=== PATIENT | female | born 1975 | race Caucasian/White ===

== ENCOUNTER → 2021-11-22 15:02 | Outpatient (BNVA) | payer MEDICAID, SELFPAY | PROVIDERS: PCP Internal Medicine; Visit Provider Nurse Practitioner Family | DX: M47.816 Spondylosis without myelopathy or radiculopathy, lumbar region (principal); M54.16 Radiculopathy, lumbar region; R29.898 Other symptoms and signs involving the musculoskeletal system; G62.9 Polyneuropathy, unspecified | CPT/HCPCS: 99202 ==

== ENCOUNTER 2023-06-14 13:17 | Outpatient (REF) | payer MEDICAID, SELFPAY ==
[2023-06-14 16:08] LABS: Estimated Average Glucose 120 mg/dL; Hemoglobin A1c % 5.8 % (<6.0)
[2023-06-14 16:26] LABS: Cholesterol 247 mg/dL (<200); HDL Cholesterol 81 mg/dL (>40); LDL Cholesterol Calculated 147 mg/dL (<100); Triglycerides 95 mg/dL (<150)
[2023-06-14 16:38] LABS: Anion Gap 12 (12-20); Blood Urea Nitrogen 14 mg/dL (9-16); Calcium 9.3 mg/dL (8.4-10.2); Carbon Dioxide 25 mmol/L (22-29); Chloride 105 mmol/L (96-108); Estimated Glomerular Filt Rate > 60; Glucose Random 81 mg/dL (60-115); Sodium 138 mmol/L (135-145)
[2023-06-14 16:41] LABS: TSH reflex Free T4 1.85 uIU/mL (0.32-4.0); Vitamin D 25-OH Total 37.3 ng/mL (>30)
[2023-06-14 17:01] LABS: Reflex LDLD? No
== END 2023-06-14 13:18 | disposition home or self-care (01) ==
LOC: HO.HHCL 13:17
PROVIDERS: Visit Provider Internal Medicine
DX: E11.9 Type 2 diabetes mellitus without complications (principal); N12 Tubulo-interstitial nephritis, not specified as acute or chronic; E55.9 Vitamin D deficiency, unspecified
CPT/HCPCS: 36415; 80048; 80061; 82306; 83036; 84443

== ENCOUNTER 2025-05-06 16:07 | Outpatient (REF) | payer MEDICAID, SELFPAY ==
--- OUTSIDE RECORDS SUMMARY | 2025-05-04 19:00 | XMS_ITS | Encounter Summary ---
Author Organization [employer] Address [address] [facility] 7t [place] [address] Care Team Providers Care Textile Colorist Formulator Name Role Phone Blanca Candelaria MD Primary Care Provider + Reason for Visit * Reason Comments Walk-In Double ear infection Encounter Details Date Type Department Care Team ([facility] st Contact Info) Description 05/04/2025 7:00 PM EDT Office Visit [facility] [address] [place] [address] Rip Hammond MD [address] [place] [address] Non-recurrent acute suppurative otitis media of both ears without spontaneous rupture of tympanic membranes (Primary Dx) Social History Tobacco Use Types Packs/Day Years Used Date Smoking Tobacco: Never Passive Smoke Exposure: Never Smokeless Tobacco: Never Alcohol Use Standard Drinks/Week Comments Never 0 (1 standard drink = 0.6 oz pur e alcohol) Housing Stability Answer Date Recorded What is your housing situation today? I have aliyah khushbu 10/22/[address] you li ve. Do you have problems with any of the following? None of the above 10/22/2024 Food Insecurity Answer Date Recorded Within the past 12 months, y ou worried that your food would run out before you got money to buy more: Never True 10/22/2024 Within the past 12 months,th e food you bought just didn't last and you didn't have enough money to get more: Never True 03/2025 Transportation Answer Date Recorded In the past 12 months, has l ack of transportation kept you from medical appts, meetings, work or from getting things needed for daily living? No 10/22/2024 Utilities Answer Date Recorded In the past 12 months, has t he electric, gas, oil or water company threatened to shut off services in your home? No 10/22/2024 Depression Answer Date Recorded Patient Health Questionnaire-2 Score 0 10/27/2022 Internet Access Answer Date Recorded Internet Access Q1 No 10/22/2024 Internet Access Q2 I do not want or need it 03/2025 Comments Unknown Sex and Gender Information Value Date Recorded Sex Assigned at Female 05/15/2022 10:25 AM EDT Legal Sex Female 10:25 AM EDT Gender Identity Female 05/15/2022 10:25 AM EDT Sexual Orientation Straight 05/15/2022 10 :25 AM EDT documented as of this encounter Last Filed Vital Signs Vital Sign Reading Time Taken Comments Blood Pressure 148/86 05/04/2025 7:03 PM EDT Pulse 92 05/04/2025 7:03 PM EDT Temperature 36.3 C (97.3 F) 05/04/2025 7:03 PM EDT Respiratory Rate 18 05/04/2025 7:03 PM EDT Oxygen Saturation 95% 05/04/2025 7:03 PM EDT Inhaled Oxygen Concentration - - Weight 99.3 kg (219 lb) 05/04/2025 7:03 PM EDT Height - - Body Mass Index 40.06 10/22/2024 3:21 PM EDT documented in this encounter Progress Notes * Rip Celeste MD - 05/04/2025 7:00 PM EDT Subjective Patient ID: Ankita Martinez is a 49 y.o. female who presents for Walk-In (Double ear infection). Earache There is pain in both ears. This is a new problem. The maximum temperature recorded prior to her arrival was 101 - 101.9 F. The pain is moderate. Pertinent negatives include no coughing, hearing loss, sore throat or vomiting. Review of Systems HENT: Positive for ear pain. Negative for hearing loss and sore throat. Respiratory: Negative for cough. Gastrointestinal: Negative for vomiting. Objective Physical Exam Constitutional: Appearance: Normal appearance. HENT: Right Ear: Drainage and tenderness present. Tympanic membrane is injected. Left Ear: Drainage and tenderness present. Tympanic membrane is injected. Neurological: Mental Status: She is alert. Assessment/Plan Problem List Items Addressed This Visit None Visit Diagnoses Non-recurrent acute suppurative otitis media of both ears without spontaneous rupture of tympanic membranes - Primary Will start on clarithromycin, no hearing loss, call back if not improving Relevant Orders Basic Metabolic Panel documented in this encounter Plan of Treatment Upcoming Encounters Date Type Department Care Team (Late st Contact Info) Description 05/07/2025 12:15 PM EDT Office Visit [facility] [address] [place] [address] Blanca Candelaria MD [address] [place] [address] 05/12/2025 11:00 AM EDT Office Visit [facility] [address] [place] [address] Scheduled Orders Name Type Priority Associated Diagnoses Orde r Schedule Basic Metabolic Panel Lab Routine Non-recurrent acute suppurative otitis media of both ears without spontaneous rupture of tympanic membranes Expected: 05/04/2025 (Approximate), Expires: 05/04/2026 documented as of this encounter Visit Diagnoses Diagnosis Non-recurrent acute suppurative otitis media of both ears without spontaneous rupture of tympanic membranes- Primary documented in this encounter Care Teams Textile Colorist Formulator Relationship Specialty Start Date End Date Blanca Candelaria MD [address] [place] [address] PCP - General Family Medicine 08/01/19 documented as of this encounter
[2025-05-06 18:34] LABS: MANUAL DIFF FLAG NO
[2025-05-06 18:46] LABS: Hematocrit 41.4 % (37.0-47.0); Hemoglobin 13.0 g/dl (12.0-16.0); Imm Gran Abs Auto 0.01 X10*3/uL (0.00-0.03); Imm Gran Pct Auto 0.2 % (0.0-0.4); Lymphocytes Absolute Auto 1.9 X10*3/uL (1.2-4.9); Mean Corpuscular HGB Conc 31.4 g/dl (31.0-35.0); Mean Corpuscular Hemoglobin 26.7 pg (27.0-33.0); Mean Corpuscular Volume 85.0 fL (80.0-98.0); NRBC Abs Auto 0.000 X10*3/uL (0.0-0.012); NRBC Pct Auto 0.0 /100WBC (0.0-0.2); Platelet Count 230 X10*3/uL (160-400); Red Blood Count 4.87 X10*6/uL (4.20-5.50); White Blood Count 5.3 X10*3/uL (4.8-10.8)
[2025-05-06 19:24] LABS: Alanine Aminotransferase 16 U/L (0-31); Albumin Level 4.4 g/dL (3.5-5.0); Alkaline Phosphatase 65 U/L (39-117); Anion Gap 17 (12-20); Aspartate Amino Transferase 18 U/L (5-31); Blood Urea Nitrogen 8 mg/dL (9-16); Calcium 9.0 mg/dL (8.4-10.2); Carbon Dioxide 23 mmol/L (22-29); Chloride 105 mmol/L (96-108); Estimated Glomerular Filt Rate > 60; Potassium 4.4 mmol/L (3.3-5.1); Sodium 141 mmol/L (135-145); Total Protein 7.3 g/dL (6.5-8.0)
[2025-05-06 19:54] LABS: Folate 8.6 ng/mL (> or = 4.0); Vitamin B12 331 pg/mL (200-900)
--- OUTSIDE RECORDS SUMMARY | 2025-05-06 21:58 | XMS_ITS | Encounter Summary ---
Author Organization [email or web address] Address [address] [facility] 7t [place] [address] Care Team Providers Care Staff Mine Warfare Officer Name Role Phone Blanca Candelaria MD Primary Care Provider + Reason for Visit * Reason Comments Med Refill Encounter Details Date Type Department Care Team ([facility] st Contact Info) Description 05/04/2025 Refill [facility] [address] [place], [place] [phone] Blanca Candelaria MD [address] [place], [place] [phone] Oropharyngeal dysphagia Social History Tobacco Use Types Packs/Day Years Used Date Smoking Tobacco: Never Passive Smoke Exposure: Never Smokeless Tobacco: Never Alcohol Use Standard Drinks/Week Comments Never 0 (1 standard drink = 0.6 oz pur e alcohol) Housing Stability Answer Date Recorded What is your housing situation today? I have aliyah ríos 10/22/[address] you li [...] AM EDT documented as of this encounter Plan of Treatment Upcoming Encounters Date Type Department Care Team (Late st Contact Info) Description 05/07/2025 12:15 PM EDT Office Visit [facility] [address] [place] [address] Blanca Candelaria MD [address] [place] [address] 05/12/2025 11:00 AM EDT Office Visit [facility] [address] [place] [address] documented as of this encounter Visit Diagnoses Diagnosis Oropharyngeal dysphagia Dysphagia, oropharyngeal phase documented in this encounter Care Teams Staff Mine Warfare Officer Relationship Specialty Start Date End Date Blanca Candelaria MD [address] [place] [phone] PCP - General Family Medicine 08/01/19 documented as of this encounter
--- OUTSIDE RECORDS SUMMARY | 2025-05-06 21:58 | XMS_ITS | Encounter Summary ---
Author Organization [employer] Address [address] [facility] 7t [place] [address] Care Team Providers Care Color Paste Mixing Supervisor Name Role Phone Blanca Candelaria MD Primary Care Provider + Reason for Visit * Reason Comments Med Refill Encounter Details Date Type Department Care Team ([facility] Contact Info) Description 11/11/2022 Refill [facility] [address] [place] [address] Blanca Candelaria MD [address] [place] [address] [phone] Chronic bilateral low back pain with bilateral sciatica Social History Tobacco Use Types Packs/Day Years Used Date Smoking Tobacco: Never Smokeless Tobacco: Never Alcohol Use Standard Drinks/Week Comments Never 0 (1 standard drink = 0.6 oz pur e alcohol) Depression Answer Date Recorded Patient Health Questionnaire-2 Score 0 10/27/2022 Comments Unknown Sex and Gender Information Value Date Recorded Sex Assigned at Female 05/15/2022 10:25 AM EDT Legal Sex Female 10:25 AM EDT Gender Identity Female 05/15/2022 10:25 AM EDT Sexual Orientation Straight 05/15/2022 10 :25 AM EDT documented as of this encounter Plan of Treatment Upcoming Encounters Date Type Department Care Team ([facility] Contact Info) Description 05/07/2025 12:15 PM EDT Office Visit [facility] [address] [place], [place] [phone] Blanca Candelaria MD [address] [place] [address] 05/12/2025 11:00 AM EDT Office Visit [facility] [address] [place] [address] documented as of this encounter Visit Diagnoses Diagnosis Chronic bilateral low back pain with bilateral sciatica documented in this encounter Care Teams Color Paste Mixing Supervisor Relationship Specialty Start Date End Date Blanca Candelaria MD [address] [place] [address] PCP - General Family Medicine 08/01/19 documented as of this encounter
--- OUTSIDE RECORDS SUMMARY | 2025-05-06 21:58 | XMS_ITS | Encounter Summary ---
Author Organization [employer] Address [address] [facility] 7t [place] [address] Care Team Providers Care Unemployment Insurance Hearing Officer Name Role Phone Blanca Candelaria MD Primary Care Provider + Reason for Visit * Reason Comments Med Refill Encounter Details Date Type Department Care Team (Late st Contact Info) Description 02/01/2025 Refill [facility] [address] [place] [address] Kate Márquez NP [address] [place] [address] Persistent dyspnea after COVID-19; Other migraine without status migrainosus, intractable Social History Tobacco Use Types Packs/Day Years [...] Description 05/07/2025 12:15 PM EDT Office Visit [facility] [address] [place] [address] Blanca Candelaria MD [address] [place] [address] 05/12/2025 11:00 AM EDT Office Visit [facility] [address] [place] [address] documented as of this encounter Visit Diagnoses Diagnosis Persistent dyspnea after COVID-19 Other migraine without status migrainosus, intractable documented in this encounter Care Teams Unemployment Insurance Hearing Officer Relationship Specialty Start Date End Date Blanca Candelaria MD [address] [place] [address] PCP - General Family Medicine 08/01/19 documented as of this encounter
--- OUTSIDE RECORDS SUMMARY | 2025-05-06 21:58 | XMS_ITS | Encounter Summary ---
Author Organization [employer] Address [address] [facility] 7t [place] [address] Care Team Providers Care Tool Pusher Name Role Phone Blanca Candelaria MD Primary Care Provider + Encounter Details Date Type Department Care Team (Late Contact Info) Description 04/17/2023 Telephone [facility] [address] [place] [address] [phone] Blanca Candelaria MD [address] [place] [address] [phone] Social History Tobacco Use Types Packs/Day Years [...] Encounters Date Type Department Care Team (Late Contact Info) Description 05/07/2025 12:15 PM EDT Office Visit [facility] [address] [place] [address] [phone] Blanca Candelaria MD [address] [place] [address] [phone] 05/12/2025 11:00 AM EDT Office Visit [facility] [address] [place] [address] documented as of this encounter Visit Diagnoses Not on filedocumented in this encounter Care Teams Tool Pusher Relationship Specialty Start Date End Date Blanca Candelaria MD [address] [place] [phone] PCP - General Family Medicine 08/01/19 documented as of this encounter
--- OUTSIDE RECORDS SUMMARY | 2025-05-06 21:58 | XMS_ITS | Encounter Summary ---
Author Organization [employer] Address [address] [facility] 7t [place] [address] Care Team Providers Care Abrasive Sawyer Name Role Phone Blanca Candelaria MD Primary Care Provider + Reason for Visit * Reason Comments Med Refill Encounter Details Date Type Department Care Team (Late st Contact Info) Description 11/01/2023 Refill [facility] [address] [place], [place] [phone] Blanca Candelaria MD [address] [place], [place] [phone] Pure hypercholesterolemia Social History Tobacco Use Types Packs/Day Years Used Date Smoking Tobacco: Never Passive Smoke Exposure: Never Smokeless Tobacco: Never Alcohol Use Standard Drinks/Week Comments Never 0 (1 standard drink = 0.6 oz pur e alcohol) Housing Stability Answer Date Recorded What is your housing situation today? I have aliyah ríos 04/30/[address] you li ve. Do you have problems with any of the following? None of the above 04/30/2023 Food Insecurity Answer Date Recorded Within the past 12 months, y ou worried that your food would run out before you got money to buy more: Never True 04/30/2023 Within the past 12 months,th e food you bought just didn't last and you didn't have enough money to get more: Never True Transportation Answer Date Recorded In the past 12 months, has l ack of transportation kept you from medical appts, meetings, work or from getting things needed for daily living? No 04/30/2023 Utilities Answer Date Recorded In the past 12 months, has t he electric, gas, oil or water company threatened to shut off services in your home? No 04/30/2023 Depression Answer Date Recorded Patient Health Questionnaire-2 [...] Description 05/07/2025 12:15 PM EDT Office Visit [facility] [address] [place] [address] Blanca Candelaria MD [address] [place] [address] 05/12/2025 11:00 AM EDT Office Visit [facility] [address] [place] [address] documented as of this encounter Visit Diagnoses Diagnosis Pure hypercholesterolemia documented in this encounter Care Teams Abrasive Sawyer Relationship Specialty Start Date End Date Blanca Candelaria MD [address] [place] [phone] PCP - General Family Medicine 08/01/19 documented as of this encounter
--- OUTSIDE RECORDS SUMMARY | 2025-05-06 21:58 | XMS_ITS | Encounter Summary ---
Author Organization [employer] Address [address] [facility] 7t [place] [address] Care Team Providers Care Social Media Editor Name Role Phone Blanca Candelaria MD Primary Care Provider + Reason for Visit * Reason Comments Med Refill Encounter Details Date Type Department Care Team ([facility] st Contact Info) Description 12/17/2024 Refill [facility] [address] [place] [address] Rip Hammond MD [address] [place] [address] Social History Tobacco Use Types Packs/Day Years [...] Description 05/07/2025 12:15 PM EDT Office Visit [facility] [address] [place] [address] Blanca Candelaria MD [address] [place] [address] 05/12/2025 11:00 AM EDT Office Visit [facility] [address] [place] [address] documented as of this encounter Visit Diagnoses Not on filedocumented in this encounter Care Teams Social Media Editor Relationship Specialty Start Date End Date Blanca Candelaria MD [address] [place] [phone] PCP - General Family Medicine 08/01/19 documented as of this encounter
--- OUTSIDE RECORDS SUMMARY | 2025-05-06 21:58 | XMS_ITS | Encounter Summary ---
Author Organization [employer] Address [address] [facility] 7t [place] [address] Care Team Providers Care Flat Optical Element Maker Name Role Phone Blanca Candelaria MD Primary Care Provider + Reason for Visit * Reason Comments Med Refill Encounter Details Date Type Department Care Team (Late Contact Info) Description 10/23/2022 Refill [facility] [address] [place] [address] Blanca Candelaria MD [address] [place] [address] [phone] Fibromyalgia; Recurrent major depressive disorder, in partial remission (CMS/HCC) Social History Tobacco Use Types Packs/Day Years Used Date Smoking Tobacco: Never Assessed Depression Answer Date Recorded Patient Health Questionnaire-2 [...] Description 05/07/2025 12:15 PM EDT Office Visit [facility] [address] [place], [place] [phone] Blanca Candelaria MD [address] [place], [place] [phone] 05/12/2025 11:00 AM EDT Office Visit [facility] [address] [place] [address] documented as of this encounter Visit Diagnoses Diagnosis Fibromyalgia Unspecified myalgia and myositis Recurrent major depressive disorder, in partial remission (CMS/HCC) documented in this encounter Care Teams Flat Optical Element Maker Relationship Specialty Start Date End Date Blanca Candelaria MD [address] [place] [phone] PCP - General Family Medicine 08/01/19 documented as of this encounter
--- OUTSIDE RECORDS SUMMARY | 2025-05-06 21:58 | XMS_ITS | Encounter Summary ---
Author Organization [employer] Address [address] [facility] 7t [place] [address] Care Team Providers Care Recorder Gravity Prospecting Name Role Phone Blanca Candelaria MD Primary Care Provider + Reason for Visit * Reason Comments Med Refill Encounter Details Date Type Department Care Team (Late Contact Info) Description 08/25/2022 Refill [facility] [address] [place] [address] Blanca Candelaria MD [address] [place], [place] [phone] Social History Tobacco Use Types Packs/Day Years Used Date Smoking Tobacco: Never Assessed Comments Unknown Sex and Gender Information Value Date Recorded Sex Assigned at Female 05/15/2022 10:25 AM EDT Legal Sex Female 10:25 AM EDT Gender Identity Female 05/15/2022 10:25 AM EDT Sexual Orientation Straight 05/15/2022 10 :25 AM EDT documented as of this encounter Plan of Treatment Upcoming Encounters Date Type Department Care Team (Late Contact Info) Description 05/07/2025 12:15 PM EDT Office Visit [facility] [address] [place], [place] [phone] Blanca Candelaria MD [address] [place] [address] 05/12/2025 11:00 AM EDT Office Visit [facility] [address] [place] [address] documented as of this encounter Visit Diagnoses Not on filedocumented in this encounter Care Teams Recorder Gravity Prospecting Relationship Specialty Start Date End Date Blanca Candelaria MD [address] [place] [phone] PCP - General Family Medicine 08/01/19 documented as of this encounter
--- OUTSIDE RECORDS SUMMARY | 2025-05-06 21:58 | XMS_ITS | Clinical Summary ---
Author Organization [facility] Address [address] [place] [phone] Phone Care Team Providers Care Inventory Control Specialist Name Role Phone Ariel Forde MD Primary Care Provider Allergies Active Allergy Reactions Criticality Noted Date Comments Iron 09/15/2024 Morphine 09/15/2024 Tramadol 09/15/2024 Medical History Medical History Date Comments Nerve damage CVA (cerebral vascular accident) ([facility] V24, [facility] V28) Diabetes mellitus ([facility] V24, [facility] V28) Asthma Hyperlipidemia Migraines Social History Tobacco Use Types Packs/Day Years Used Date Smoking Tobacco: Never Smokeless Tobacco: Never Tobacco Cessation:Counseling Given: Not Answered Alcohol Use Standard Drinks/Week Comments Never 0 (1 standard drink = 0.6 oz pur e alcohol) Comments No Sex and Gender Information Value Date Recorded Sex Assigned at Female 09/15/2024 11:44 PM EST Legal Sex Female 4:54 AM EST Gender Identity Female 09/15/2024 11:44 PM EST Sexual Orientation Choose not to disclose 2024 11:44 PM EST Obstetrics History Last Filed Vital Signs Vital Sign Reading Time Taken Comments Blood Pressure 136/83 09/15/2024 10:49 PM EST Pulse 83 09/15/2024 10:49 PM EST Temperature 36.6 C (97.9 F) 09/15/2024 10:49 PM EST Respiratory Rate 16 09/15/2024 8:41 PM EST Oxygen Saturation 99% 09/15/2024 10:49 PM EST Inhaled Oxygen Concentration - - Weight 102 kg (224 lb) 09/15/2024 8:41 PM EST Height 157.5 cm (5' 2 ) 09/15/2024 8:41 PM EST Body Mass Index 40.97 09/15/2024 8:41 PM EST Plan of Treatment Health Maintenance Due Date Last Done Comments Breast Cancer Screening 1974 Colorectal Cancer Screening: Colonoscopy 1974 Diabetes: Annual GFR (Glomerular Filtration Rate) 1974 Diabetes: Annual Foot Exam 1984 Diabetes: Annual Retina Eye Exam 1984 Hepatitis B Vaccines (1 of 3 - 19+ 3-dose series) 1993 Cervical Cancer Screening: P ap Smear 11/14/1995 Cholesterol Screening (Lipid Panel) 06/18/2022 HIV Screening 06/18/2022 Hepatitis C Screening 06/18/2022 Social Influencers of Health Screening 06/18/2022 Depression Screening 07/16/2024 Diabetes: Annual Urine Albumin-Creatinine Ratio (uACR) 09/16/2024 Diabetes: Blood Sugar Contro l Test (HGBA1C) 09/16/2024 06/14/2023 Hypertension/CHF/CAD Annual BMP Blood Test 09/16/2024 RSV Immunization Adult Patients (1 - Risk 50-74 years 1-dose series) 2024 Zoster Vaccines (1 of 2) 2024 COVID-19 Vaccine (4 - 2024-2 6 season) 2025 07/20/2023, 01/18/2021, 12/22/2020 Influenza Vaccine (#1) 2025 DTaP,Tdap,and Td Vaccines (3 - Td or Tdap) 07/20/2033 07/20/2023, 04/03/2006 Pneumococcal Vaccine: 50+ Years Completed 07/20/2023 HIB Vaccines Aged Out No longer eligi ble based on patient's age to complete this topic HPV Vaccines Aged Out No longer eligi ble based on patient's age to complete this topic Hepatitis A Vaccines Aged Out No long er eligible based on patient's age to complete this topic IPV Vaccines Aged Out No longer eligi ble based on patient's age to complete this topic MMR Vaccines Aged Out No longer eligi ble based on patient's age to complete this topic Meningococcal ACWY Vaccine Aged Out N o longer eligible based on patient's age to complete this topic Meningococcal B Vaccine Aged Out No l onger eligible based on patient's age to complete this topic RSV Immunization Patients Under 20 months Aged Out No longer eligible b ased on patient's age to complete this topic Varicella Vaccines Aged Out No longer eligible based on patient's age to complete this topic Insurance MEDICAID - [place] Care Teams Inventory Control Specialist Relationship Specialty Start Date End Date Ariel Forde MD [address] [place], [place] PCP - General Pulmonology 08/28/17
--- OUTSIDE RECORDS SUMMARY | 2025-05-06 21:58 | XMS_ITS | Encounter Summary ---
Author Organization [employer] Address [address] [facility] 7t [place] [address] Care Team Providers Care Feed Miller Name Role Phone Blanca Candelaria MD Primary Care Provider + Encounter Details Date Type Department Care Team (Late st Contact Info) Description 02/19/2024 Orders Only [facility] [address] [place] [address] BetancurRip Brady MD [address] [place] [address] Social History Tobacco Use Types Packs/Day Years [...] 12:15 PM EDT Office Visit [facility] [address] [place] [address] Blanca Candelaria MD [address] [place] [address] 05/12/2025 11:00 AM EDT Office Visit [facility] OPT[facility] [address] [place] [address] documented as of this encounter Visit Diagnoses Not on filedocumented in this encounter Care Teams Feed Miller Relationship Specialty Start Date End Date Blanca Candelaria MD [address] [place] [phone] PCP - General Family Medicine 08/01/19 documented as of this encounter
--- OUTSIDE RECORDS SUMMARY | 2025-05-06 21:58 | XMS_ITS | Encounter Summary ---
Author Organization [employer] Address [address] [facility] 7t [place] [address] Care Team Providers Care Feeder Loader Name Role Phone Blanca Candelaria MD Primary Care Provider + Reason for Visit * Reason Onset Date Comments Appointment Request 10/16/2022 Encounter Details Date Type Department Care Team (Late st Contact Info) Description 10/16/2022 Telephone [facility] MEDICINE [address] [place] [address] Blanca Candelaria MD [address] [place] [address] Appointment Request Social History Tobacco Use Types Packs/Day Years Used Date Smoking Tobacco: Never Assessed Comments Unknown Sex and Gender Information Value Date Recorded Sex Assigned at Female 05/15/2022 10:25 AM EDT Legal Sex Female 10:25 AM EDT Gender Identity Female 05/15/2022 10:25 AM EDT Sexual Orientation Straight 05/15/2022 10 :25 AM EDT documented as of this encounter Miscellaneous Notes * Telephone Encounter - Sohan Patterson - 10/16/2022 12:45 PM EDT Tc from pt requesting to r/s appt on 10/16/22 ( ED follow up [facility] 10/01 UTI *Pls get UA w/ UC if continues to be symptomatic, and see if [facility] records available. Thank you. ) Please contact pt at [phone] documented in this encounter Plan of Treatment Upcoming Encounters Date Type Department Care Team (Late st Contact Info) Description 05/07/2025 12:15 PM EDT Office Visit [facility] MEDICINE [address] [place] [address] Blanca Candelaria MD [address] [place] [address] 05/12/2025 11:00 AM EDT Office Visit [facility] OPTOMETRY [address] [place] [address] documented as of this encounter Visit Diagnoses Not on filedocumented in this encounter Care Teams Feeder Loader Relationship Specialty Start Date End Date Blanca Candelaria MD [address] [place] [address] PCP - General Family Medicine 08/01/19 documented as of this encounter
--- OUTSIDE RECORDS SUMMARY | 2025-05-06 21:58 | XMS_ITS | Encounter Summary ---
Author Organization [employer] Address [address] [facility] 7t [place] [address] Care Team Providers Care Bulk Gas Specialist Name Role Phone Blanca Candelaria MD Primary Care Provider + Encounter Details Date Type Department Care Team (Late st Contact Info) Description 07/28/[address] [facility] MEDICINE [address] [place] [phone] Blanca Candelaria MD [address] [place] [address] Social History Tobacco Use Types Packs/Day Years [...] Description 05/07/2025 12:15 PM EDT Office Visit [facility] MEDICINE [address] [place] [address] [phone] Blanca Candelaria MD [address] [place] [address] 05/12/2025 11:00 AM EDT Office Visit [facility] OPTOMETRY [address] [place] [address] documented as of this encounter Visit Diagnoses Not on filedocumented in this encounter Care Teams Bulk Gas Specialist Relationship Specialty Start Date End Date Blanca Candelaria MD [address] [place] [id number] PCP - General Family Medicine 08/01/19 documented as of this encounter
--- OUTSIDE RECORDS SUMMARY | 2025-05-06 21:58 | XMS_ITS | Encounter Summary ---
Author Organization [employer] Address [address] [facility] 7t [place] [address] Care Team Providers Care Barrel Cleaner Name Role Phone Blanca Candelaria MD Primary Care Provider + Reason for Visit * Reason Comments Med Refill Encounter Details Date Type Department Care Team ([facility] st Contact Info) Description 05/11/2024 Refill [facility] CHC MED & PEDS [address] [place] [address] Rip Hammond MD [address] [place] [address] Social History Tobacco Use Types Packs/Day Years [...] Description 05/07/2025 12:15 PM EDT Office Visit [facility] MEDICINE [address] [place] [address] Blanca Candelaria MD [address] [place] [address] 05/12/2025 11:00 AM EDT Office Visit [facility] OPTOMETRY [address] [place] [address] documented as of this encounter Visit Diagnoses Not on filedocumented in this encounter Care Teams Barrel Cleaner Relationship Specialty Start Date End Date Blanca Candelaria MD [address] [place] [id number] PCP - General Family Medicine 08/01/19 documented as of this encounter
--- OUTSIDE RECORDS SUMMARY | 2025-05-06 21:58 | XMS_ITS | Encounter Summary ---
Author Organization [email or web address] Address [address] [facility] 7t [place] [address] Care Team Providers Care Computational Scientist Name Role Phone Blanca Candelaria MD Primary Care Provider + Reason for Visit * Reason Onset Date Comments Med Refill 07/20/2023 Encounter Details Date Type Department Care Team (Late st Contact Info) Description 07/20/2023 Refill [facility] MEDICINE [address] [place], [place] [phone] Blanca Candelaria MD [address] [place], [place] [phone] Social History Tobacco Use Types Packs/Day Years [...] Description 05/07/2025 12:15 PM EDT Office Visit [facility] MEDICINE [address] [place] [address] Blanca Candelaria MD [address] [place] [address] 05/12/2025 11:00 AM EDT Office Visit [facility] OPTOMETRY [address] [place] [address] documented as of this encounter Visit Diagnoses Not on filedocumented in this encounter Care Teams Computational Scientist Relationship Specialty Start Date End Date Blanca Candelaria MD [address] [place] [id number] PCP - General Family Medicine 08/01/19 documented as of this encounter
--- OUTSIDE RECORDS SUMMARY | 2025-05-06 21:58 | XMS_ITS | Encounter Summary ---
Author Organization [employer] Address 75 [facility] 7t [place] [address] Care Team Providers Care Master Printer Name Role Phone Blanca Candelaria MD Primary Care Provider + Reason for Visit * Reason Comments Med Refill Encounter Details Date Type Department Care Team (Late st Contact Info) Description 06/29/2023 Refill [facility] CHC MED & PEDS [address] [place] [address] Gris Murray MD [address] [place] [address] Lumbar radiculopathy Social History Tobacco Use Types Packs/Day Years [...] Description 05/07/2025 12:15 PM EDT Office Visit [facility] MEDICINE [address] [place] [address] Blanca Candelaria MD [address] [place] [address] 05/12/2025 11:00 AM EDT Office Visit [facility] OPTOMETRY [address] [place] [address] documented as of this encounter Visit Diagnoses Diagnosis Lumbar radiculopathy Thoracic or lumbosacral neuritis or radiculitis, unspecified documented in this encounter Care Teams Master Printer Relationship Specialty Start Date End Date Blanca Candelaria MD [address] [place], [place] [phone] PCP - General Family Medicine 08/01/19 documented as of this encounter
--- OUTSIDE RECORDS SUMMARY | 2025-05-06 21:58 | XMS_ITS | Encounter Summary ---
Author Organization [employer] Address [address] [facility] 7t [place] [address] Care Team Providers Care Correction Officer Supervisor Name Role Phone Blanca Candelaria MD Primary Care Provider + Reason for Visit * Reason Onset Date Comments Nurse Triage 05/04/2025 Encounter Details Date Type Department Care Team (Late st Contact Info) Description 05/04/2025 Telephone [facility] MEDICINE [address] [place], [place] [phone] Blanca Candelaria MD [address] [place] [address] Nurse Triage Social History Tobacco Use Types Packs/Day Years [...] encounter Miscellaneous Notes * Telephone Encounter - Luna Baires RN - 05/04/2025 4:46 PM EDT Telephone call to the pt . Pt states that she has bilateral ear pain with yellow drainage from bothears . x4 days . States she had a fever of 102 last night which lowered with Tylenol . Pt states she has chronic pain and is also concerned with being able to schedule an appt with her PCP regarding the Toradol injections , or possibly a medication that she can take at home for the chronic pain . Pt states she has been having trouble with [facility] in getting her diabetic medical supplies .Pt was given an appt tonight [facility] at 7pm for the ear pain . Pt states she will book a PCP appt at that time . Pt was advised that this message will be sent to the DME specialist to assist her with the medical supplies . Pt verbalized understanding ,and agrees with the plan. Protocol Used: Earache (Adult) Protocol-Based Disposition: See in Office or Video Visit Today Positive Triage Questions: * White, yellow, or green discharge (pus) * Diabetes mellitus or a weak immune system (e.g., HIV positive, cancer chemotherapy, transplant patient) * Patient wants to be seen * All higher-acuity triage questions were negative * Telephone Encounter - Selvin Casanova - 05/04/2025 4:19 PM EDT Symptoms: Earache, Pain - Severe Outcome: Schedule an urgent appointment (within 1 hour) or talk to a nurse or provider soon Reason: Caller denied all higher acuity questions The caller accepted this outcome. Contact pt at [phone] documented in this encounter Plan of Treatment Upcoming Encounters Date Type Department Care Team (Late st Contact Info) Description 05/07/2025 12:15 PM EDT Office Visit [facility] MEDICINE [address] [place] [address] Blanca Candelaria MD [address] [place], [place] [phone] 05/12/2025 11:00 AM EDT Office Visit [facility] OPTOMETRY [address] [place], [place] [phone] documented as of this encounter Visit Diagnoses Not on filedocumented in this encounter Care Teams Correction Officer Supervisor Relationship Specialty Start Date End Date Blanca Candelaria MD [address] [place], [place] [phone] PCP - General Family Medicine 08/01/19 documented as of this encounter
--- OUTSIDE RECORDS SUMMARY | 2025-05-06 21:58 | XMS_ITS | Encounter Summary ---
Author Organization [email or web address] Address [address] [facility] 7t [place] [address] Care Team Providers Care Nurseryman Assistant Name Role Phone Blanca Candelaria MD Primary Care Provider + Encounter Details Date Type Department Care Team (Latest Contact Info) Description 05/04/2025 Travel Social History Tobacco Use Types Packs/Day Years [...] PM EDT Office Visit [facility] MEDICINE [address] [place] [address] Blanca Candelaria MD [address] [place] [address] 05/12/2025 11:00 AM EDT Office Visit [facility] OPTOMETRY [address] [place] [address] documented as of this encounter Visit Diagnoses Not on filedocumented in this encounter Care Teams Nurseryman Assistant Relationship Specialty Start Date End Date Blanca Candelaria MD [address] [place] [address] PCP - General Family Medicine 08/01/19 documented as of this encounter
--- OUTSIDE RECORDS SUMMARY | 2025-05-06 21:58 | XMS_ITS | Clinical Summary ---
Author Organization [employer] Address [address] [place] [address] Care Team Providers Care Estate Planning Paralegal Name Role Phone Blanca Candelaria MD Primary Care Provider + Allergies Active Allergy Reactions Criticality Noted Date Comments Cephalexin Hives 03/27/2024 Doxycycline Hives 03/27/2024 Hydrocortisone 05/21/2020 Ibuprofen Abdominal Pain 03/27/2024 Iron Anaphylaxis High 05/21/2020 Morphine 12/04/2019 Tramadol 02/02/2020 Medications ammonium lactate (Amlactin) 12 % cream use as directed daily 2019 Active aspirin 81 MG chewable tablet chew 1 tablet by oral route every day 2020 Active buPROPion XL (Wellbutrin XL) 300 MG 24 hr tablet take 1 tablet by oral route every day Active ergocalciferol (Drisdol) 1.25 MG (92804 UT) capsule take 1 capsule by oral route every week 2021 Active LORazepam (Ativan) 1 MG tablet take 1 tablet by oral route four times daily Active methylphenidate ER (Concerta) 27 MG CR tablet take 1 tablet by oral route every day in the morning Active Nutritional Supplements (Glucerna 1.2 Malachi) liquid 1 can po/d 2020 Active Nutritional Supplements (Boost Glucose Control) liquid 1 can/d 2021 Active Misc. Devices (Pulse Oximeter) misc Use when short of breath; report to care if HR > 120 or SpO2% < 90% 2021 Active zolpidem CR (Ambien CR) 12.5 MG ER tablet take 1 tablet by oral route every day at bedtime Active Misc. Devices (Rollator Ultra-Light) misc Use as directed Active FreeStyle lancets Freestyle lancets 28 gauge Use 1 lancet by To Skin route 2 times every day Active Blood Glucose Monitoring Suppl (FreeStyle Lite) w/Device kit Check BS by Subcutaneous route 2 times every day Active polyethylene glycol, PEG, 3350 (Glycolax) 17 GM/SCOOP powderIndications:Cons tipation, unspecified constipation type MIX 17 GRAMS WITH 8 OUNCES OF WATER, JUICE, COFFEETEA AND DRINK ONCE DAILY 510 g 3 2022 Active QUEtiapine (SEROquel) 25 MG tablet Take 2 tablets by mouth if needed at bedtime. 2022 Active magnesium oxide (Mag-Ox) 400 (240 Mg) MG tabletIndications:Bila teral leg cramps TAKE 1 TABLET BY MOUTH EVERY DAY 90 tablet 2023 Active Blood Pressure Monitoring (Blood Pressure Cuff) misc Use daily as prescribed 1 each 2023 Active cyclobenzaprine (Flexeril) 10 MG tabletIndications:Lumb ar radiculopathy TAKE 1 TABLET BY MOUTH THREE TIMES DAILY 60 tablet 5 2023 Active albuterol (Ventolin HFA) 108 (90 Base) MCG/ACT inhalerIndications:Unc omplicated asthma, unspecified asthma severity, unspecified whether persistent INHALE 2 PUFFS BY MOUTH FOUR TIMES DAILY NEEDED 18 g 3 2024 Active FREESTYLE LITE test stripIndications:Type 2 diabetes mellitus without complication, without long-term current use of insulin (HCC) TEST BLOOD SUGAR EVERY DAY 100 strip 5 2024 Active atorvastatin (Lipitor) 40 MG tabletIndications:Pure hypercholesterolemia TAKE 1 TABLET(40 MG) BY MOUTH AT BEDTIME 90 tablet 1 2024 Active Diclofenac Sodium 1 % gel APPLY 1 INCH TOPICALLY TO THE AFFECTED AREA IF NEEDED FOR PAIN IN THE MORNING AND AT BEDTIME 100 g 1 2024 Active SUMAtriptan (Imitrex) 25 MG tabletIndications:Othe r migraine without status migrainosus, intractable Take 1 tablet (25 mg) by mouth 1 (one) time if needed for migraine. May repeat dose once in 2 hours if no relief. Do not exceed 2 doses in 24 hours. 9 tablet 11 2024 Active albuterol (Ventolin HFA) 108 (90 Base) MCG/ACT inhaler INHALE 2 PUFFS INTO THE LUNGS FOUR TIMES DAILY NEEDED 18 g 3 2024 Active venlafaxine XR (Effexor XR) 75 MG 24 hr capsuleIndications:Chr onic neck and back pain,Other migraine without status migrainosus, intractable TAKE 1 CAPSULE(75 MG) BY MOUTH DAILY. DO NOT CRUSH OR CHEW 30 capsule 1 2024 Active furosemide (Lasix) 20 MG tabletIndications:Veno us ulcer-leg syndrome, bilateral (HCC) TAKE 1 TABLET(20 MG) BY MOUTH IN THE MORNING 90 tablet 2024 Active Mometasone Furoate (Asmanex HFA) 200 MCG/ACT aerosolIndications:Per sistent dyspnea after COVID-19 INHALE 1 PUFF INTO THE LUNGS TWICE DAILY 13 g 1 2024 Active cyanocobalamin (Vitamin B-12) 1000 MCG tablet TAKE 1 TABLET BY MOUTH EVERY DAY 90 tablet 1 2024 Active docusate sodium (Colace) 100 MG capsule TAKE 1 CAPSULE BY MOUTH TWICE DAILY NEEDED 180 capsule 1 2024 Active lidocaine (Xylocaine) 2 % solutionIndications:Or opharyngeal dysphagia SWISH AND SPIT 15 MLS EVERY 6 HOURS NEEDED FOR SORE THROAT 900 mL 3 2024 Active Acetaminophen Extra Strength 500 MG tablet TAKE 1 TABLET BY MOUTH EVERY 6 HOURS IF NEEDED FOR MILD PAIN 90 tablet 2024 Active Nystop 522553 UNIT/GM powder APPLY TOPICALLY TO THE AFFECTED AREA TWICE DAILY 15 g 3 2024 Active phentermine 37.5 MG capsule TAKE 1 CAPSULE(37.5 MG) BY MOUTH BEFORE BREAKFAST 30 capsule 2024 Active clarithromycin (Biaxin) 500 MG tablet Take 1 tablet (500 mg) by mouth 2 times daily for 7 days. 14 tablet 05/11 Active lidocaine (Xylocaine) 2 % solutionIndications:Or opharyngeal dysphagia SWISH AND SPIT 15 MLS EVERY 6 HOURS NEEDED FOR SORE THROAT 900 mL 3 12/13/ 2024 10/22 /2025 Discontinued Acetaminophen Extra Strength 500 MG tablet TAKE 1 TABLET BY MOUTH EVERY 6 HOURS IF NEEDED FOR MILD PAIN 90 tablet 05/06 Discontinued nystatin (Mycostatin) 161271 UNIT/GM powder APPLY TOPICALLY TO THE AFFECTED AREA TWICE DAILY 15 g 3 05/06 Discontinued phentermine 37.5 MG capsule TAKE 1 CAPSULE(37.5 MG) BY MOUTH BEFORE BREAKFAST 30 capsule 05/06 Discontinued Active Problems Problem Noted Date Diagnosed Date Class 3 severe obesity due t o excess calories with serious comorbidity and body mass index (BMI) of 40.0 to 44.9 in adult 12/17/2024 Assessment & Plan (12/17/2024 11:20 AM EDT): Discussed re weight reduction options including exercise, life style modifications, diet. Recommended to decrease soda and sugary beverage consumption, increase protein intake with meals (at least 1 portion of protein with each meal) to assist with satiety, increase dietary fiber Recommended at least 150 min/week of moderate intensity exercise. Declined a referral to dietitian I will start phentermine daily with breakfast, discussed with patient regarding side effects including palpitations, increased BP or anxiety, she will call back as needed side effects or any change on daily functioning. I will follow-up with her in 6 to 7 weeks Viral upper respiratory tract infection 10/23/19 Assessment & Plan (12/17/2024 11:09 AM EDT): Rapid viral test are negative today, she will reconsult as needed if symptoms do not improve in 3 to 4 days Rest (sleep at least 8 hours a night). Hydrate with plenty of water (avoid caffeine and alcohol). Use saline nose drops to loosen mucus + Flonase nasal Take Acetaminophen (Tylenol )/Ibuprofen as needed to reduce fever, headache, body aches or discomfort Gargle with salt water and use throat sprays/lozenges for throat pain. Use heated, humidified air. If you do not have a humidifier, take hot showers. Cover coughs and sneezes using the crook of your elbow. If you have a fever, stay home and away from others (self isolation) until fever-free for 72 hours (temperature should be less than 100 F without medication). Chronic neck and back pain 09/05/2024 Assessment & Plan (10/08/2024 1:25 PM EDT): Pt with chronic pain, impacting adls, movement is painful Resume snri, monitor for s/e Referral to chronic pain group, Pt requesting medication at this defer to pcp for chronic pain plan Intractable migraine without status migrainosus 09/05/2024 Assessment & Plan (12/17/2024 11:21 AM EDT): New referral to Neurology , to Joe [facility], [facility] Rx sumatriptan as needed Assessment & Plan (10/08/2024 1:26 PM EDT): Headache , severe but consistent with previous headaches. Tolerates ketorolac with relief, administered in clinic today Other secondary hypertension 09/05/2024 Persistent dyspnea after COVID-19 09/05/2024 Anemia due to vitamin B12 deficiency 09/05/2024 Hypertension 09/05/2024 Assessment & Plan (10/08/2024 1:27 PM EDT): Above goal today,pt attributes this to headache and back pain Follow up for repeat bp in 2-4 weeks Mild intermittent asthma with exacerbation 07/30 Assessment & Plan (07/30/2024 5:11 PM EST): Likely residual sp Influenza, no need for abs at this time Rx medrol pack, precautions with GI side effects, she usually tolerates well except for mild swelling. Use albuterol inh q4h x 3d then prn. FU w me in 3w (overbook is ok) Uncomplicated asthma 07/30/2024 Cough in adult 07/30/2024 Elbow sprain, right, initial encounter Assessment & Plan (02/12/2024 5:44 PM EDT): Sp fall, likely tendinosis Advised to apply ice to affected area, diclofenac gel bid and tylenol prn Ordered Xrays, she will get them done if sxs do not improve within 1w Injury of right knee 02/12/2024 Assessment & Plan (02/12/2024 5:45 PM EDT): Ro meniscal injury Apply ice to affected area + diclofenac gel bid + Tylenol prn Toradol inj today. I ordered Xrays to be done if sxs do not improve within 1w Fall (on) (from) other stairs and steps, initial encounter 02/12/2024 Assessment & Plan (02/12/2024 5:46 PM EDT): Recurrent, due to multiple site OA and weakness due to radiculopathy. Advised to avoid using stairs, she should use a bedside commode Hot flushes, perimenopausal 02/12/2024 Assessment & Plan (02/12/2024 6:57 PM EDT): RO htn, will order BP machine to check BP three times per week and fu w me in Counseled re low salt diet/increase moderate physical activity. Non smoking patient. Chest pain 07/20/2023 Assessment & Plan (07/20/2023 3:23 PM EST): Seems to be related to anxiety, symptoms significantly decreased throughout the appointment Repeated EKGs have been previously nl and cardiovascular risk factors are controlled Counseled to FU closely w/ mental health provider Continue breathing and stretching techniques Encounter for preventive health examination 11/2023 Assessment & Plan (07/20/2023 3:24 PM EST): She's have TD, PCV 20, and Covid IZ today. She decline influenza IZ. Stress incontinence of urine 06/14/2023 Cervicogenic headache 06/14/2023 Assessment & Plan (12/17/2024 11:21 AM EDT): Patient has underlying migraine but at this time he may be triggered or exacerbated by cervical disc disease. Patient referred to our chronic pain management clinic and acupuncture Assessment & Plan (06/14/2023 1:04 PM EST): Maybe related to cervical radiculopathy vs migraine. Chronic migraine without aur a without status migrainosus, not intractable 10/27/2022 Assessment & Plan (10/27/2022 11:08 AM EDT): Continue topamax qhs Take Tylenol and naproxen PRN and FU with neurology Pyelonephritis 10/27/2022 Assessment & Plan (10/27/2022 11:05 AM EDT): Resolved with antibiotics FU PRN Other physeal fracture of ph alanx of right toe, subsequent encounter for fracture with routine healing 07/13/2022 Assessment & Plan (07/13/2022 9:31 PM EST): On post op shoes + javier taping. FU with orthopedics, she has wheelchair for tranfers and has COUNTER INTELLIGENCE. Recurrent falls while walking 07/13/2022 Assessment & Plan (07/13/2022 9:34 PM EST): Patient has disc disease of spine, some neuropathy aggravated after COVID and currently toe fractures. FU with orthopedics for acute condition/fracture Needs further evaluation from PT/OT once fractures are healed to decrease risk of falls due to above. Patient has walker for ambulation and also a wheelchair. She also has COUNTER INTELLIGENCE to help with ADLs, lives with daughter. FU w me in 2-3 m Abnormal gait 06/24/2022 Acute back pain with sciatica 06/24/2022 Chronic low back pain 06/24/2022 Assessment & Plan (07/20/2023 3:21 PM EST): Pt will have Toradol injection today Continue tylenol PRN w/ flexeril She has home PT, continue to need assistance for ADL's Pt has DME at home and continues to use a walker Assessment & Plan (10/27/2022 11:10 AM EDT): She has known disc disease with lumbar radiculopathy continue naproxen PRN ambulates with a walker as needed fu with pain clinic as needed Cobalamin deficiency 06/24/2022 Concussion with no loss of consciousness 022 Excess skin of thigh 06/24/2022 Fibromyalgia 06/24/2022 Pure hypercholesterolemia 06/24/2022 Assessment & Plan (10/30/2023 5:18 PM EDT): - tolerates Atorvastatin at a low dose, increase to 40mg at bedtime - f/u with lipids in 6 months Assessment & Plan (07/20/2023 3:22 PM EST): Start atorvastatin 20mg and FU in 6 wks, will adjust if pt tolerated medication Injury of right shoulder 06/24/2022 Lumbar radiculopathy 06/24/2022 Assessment & Plan (12/17/2024 11:18 AM EDT): She completed PT and has recurrent pain. She wants to avoid further epidural injections at this time. I will refer her to our chronic pain clinic He will she will have Toradol injection today, she can continue Toradol 30 mg IM/D x 3 days maximum as needed pain. Advised to contact acupuncture clinic Follow-up with me in 3 to 4 months Assessment & Plan (02/12/2024 6:56 PM EDT): Continue PT and naproxen prn She can return for Toradol inj max q3m, will monitor BMP Use lidocaine patches, tylenol and flexeril prn Discussed re safety at home, to avoid falls, use walker for ambulation and avoid using stairs. She has a COUNTER INTELLIGENCE to help with ADLs Assessment & Plan (10/30/2023 5:02 PM EDT): - partially improved with Toradol injection. Will repeat Toradol 30 mg IM today and can be given every 2/3 days x 3 doses, pt will call back for next visit - pt will start physical therapy at [facility] PT - continue Naproxen PRN and Flexeril - advised about risk of falls and ambulation with cane Assessment & Plan (06/14/2023 1:02 PM EST): She continues PT and FU w/ neurosurgery Will give tramadol 30mg IM today that can be repeated in 2-3 days if Sx do not significantly improve Morbid obesity (CMS/HCC) 06/24/2022 Near syncope 06/24/2022 Oropharyngeal dysphagia 06/24/2022 Slow transit constipation 06/24/2022 Traumatic arthropathy of shoulder 06/24/2022 Type 2 diabetes mellitus without complication Assessment & Plan (12/17/2024 11:11 AM EDT): Controlled. A1c is at goal. Continue on lifestyle modifications only, we discussed importance of weight reduction. Counseled re more frequent low calorie/carb meals. Check fgstk 1x daily Encouraged physical activity as tolerated. FU in 4 months. Assessment & Plan (02/12/2024 6:56 PM EDT): Its most likely controlled. Counseled re more frequent low calorie/carb meals. Encouraged physical activity as tolerated. FU in 6 months. Assessment & Plan (10/30/2023 4:22 PM EDT): Controlled. A1c is at goal. Continue off medication Counseled re more frequent low calorie/carb meals. Advised to drink at least 1 can of glucerna/nutritional supplements per day, specially on days where PO intake is low due to depression. Check fgstk once daily Encouraged physical activity as tolerated. FU in 3-4 months. Assessment & Plan (08/29/2023 4:17 PM EST): Controlled. A1c is at goal. Continue off medication Counseled re more frequent low calorie/carb meals. Advised to drink at least 1 can of glucerna/nutritional supplements per day, specially on days where PO intake is low due to depression. Check fgstk once daily Encouraged physical activity as tolerated. FU in 3-4 months. Assessment & Plan (06/14/2023 1:03 PM EST): Controlled. Check labs Counseled re more frequent low calorie/carb meals. Encouraged physical activity as tolerated. FU in 6 wks. Assessment & Plan (07/13/2022 9:32 PM EST): Order labs and fu w me in 2m Urinary incontinence 06/24/2022 Assessment & Plan (06/14/2023 1:03 PM EST): Use urinary pads during the day, can use pull-ups at night for more comfort. Counseled wt reduction. Assessment & Plan (10/27/2022 11:11 AM EDT): Due to neurogenic bladder and limited mobility. Continue Kegel exercises as tolerated. Use pull up diapers as needed. Venous ulcer-leg syndrome, bilateral 06/24/2022 Vitamin D deficiency 06/24/2022 Assessment & Plan (06/14/2023 1:03 PM EST): Order lvls History of fusion of cervical spine 06/24/2022 Overview (06/24/2022): history of cervical spine fusion History of fall 06/24/2022 History of laparoscopic adjustable gastric satya ng 06/24/2022 Resolved Problems Problem Noted Date Diagnosed Date Resolved Date Fall 07/13/2022 10/30/2023 Assessment & Plan (07/13/2022 9:32 PM EST): Recurrent. Had toe fracture. Complaint of rash 06/24/2022 10/30/2023 Exposure to COVID-19 virus 06/24/2022 0 10/30/2023 Fever 06/24/2022 10/30/2023 Influenza-like symptoms 06/24/2022 04/1 12/2023 Paraparesis (CMS/HCC) 06/24/20222023 Spinal cord compression (CMS/HCC) 06/24/2022 10/22/2024 Encounters Date Type Department Care Team Description 05/04/2025 7:00 PM EDT Office Visit [facility] [address] [place] [address] Rip Hammond MD Non-recurrent acute suppurative otitis media of both ears without spontaneous rupture of tympanic membranes (Primary Dx) 05/04/2025 Travel 05/04/2025 Telephone [facility] [address] [place] [address] Blanca Candelaria MD Nurse Triage 05/04/2025 Refill [facility] [address] [place] [address] [phone] Blanca Candelaria MD Oropharyngeal dysphagia 04/01/[address] [phone] Blanca Candelaria MD Durable Medical Equipment (DME: Multiple Items) 03/19/[address] [phone] Blanca Candelaria MD Chart Prep 03/17/[address] [phone] Blanca Candelaria MD Referral (The patient is requesting a referral for mental health counseling. She stated that she has a psychiatrist, but would also like to see a therapist. She may be reached at [phone].) 03/03/2025 Refill [facility] [address] [place] [address] [phone] Blanca Candelaria MD Venous ulcer-leg syndrome, bilateral (CMS/HCC) 02/23/[address] [phone] Blanca Candelaria MD 02/18/[address] [phone] Blanca Candelaria MD requesting call back from Last 3 Months Immunizations Immunization Administration Dates Next Due Moderna Covid-19 Vaccine 12+ 01/18/2021,12/23/19 21 Pfizer Covid-19 Vaccine 12+ 07/20/2023 Pneumococcal Conjugate PCV 20 07/20/2023 TD (adult), 2 Lf tetanus tox oid, preservative free, adsorbed 07/20/2023 Td (adult), unspecified 04/03/2006 Social History Tobacco Use Types Packs/Day Years Used Date Smoking Tobacco: Never Passive Smoke Exposure: Never Smokeless Tobacco: Never Tobacco Cessation:Counseling Given: [...] Orientation Straight 05/15/2022 10 :25 AM EDT Last Filed Vital Signs Vital Sign Reading Time Taken Comments Blood Pressure 148/86 05/04/2025 7:03 PM EDT Pulse 92 05/04/2025 7:03 PM EDT Temperature 36.3 C (97.3 F) 05/04/2025 7:03 PM EDT Respiratory Rate 18 05/04/2025 7:03 PM EDT Oxygen Saturation 95% 05/04/2025 7:03 PM EDT Inhaled Oxygen Concentration - - Weight 99.3 kg (219 lb) 05/04/2025 7:03 PM EDT Height 157.5 cm (5' 2 ) 10/22/2024 3:21 PM EDT Body Mass Index 40.06 10/22/2024 3:21 PM EDT Plan of Treatment Upcoming Encounters Date Type Department Care Team (Late st Contact Info) Description 05/07/2025 12:15 PM EDT Office Visit [facility] [address] [place] [address] Blanca Candelaria MD [address] [place] [address] 05/12/2025 11:00 AM EDT Office Visit [facility] [address] [place], [place] [phone] Health Maintenance Due Date Last Done Comments CT Colonography 1974 Colonoscopy 1974 Colorectal Cancer Screening 1974 FIT DNA/Cologuard 1974 FIT 1974 FOBT 1974 HIV Screening 1974 Sigmoidoscopy 1974 Disability Screening 1974 Diabetes: Foot Exam 1984 Eye Exam 1984 Alcohol/Substance Use Screening 1986 Family Planning (PISQ) 1989 Hepatitis C Screening 1992 Hepatitis B Vaccines (1 of 3 - 19+ 3-dose series) 1993 Mammogram 2014 Diabetes: Urine Protein Screening 01/12/2022 01/12/2021 Cervical Cancer Screening 06/09/2022 HPV/Cotest 06/09/2022 06/09/2019, 06/09/2019 Pap Smear 06/09/2022 06/09/2019, 06/09/2019 DTaP/Tdap/Td Vaccines (1 - Tdap) 07/21/2023 07/20/2023, 04/03/2006 Depression Screening 10/28/2023 10/27/2022, 10/28/19 23 Lipid Panel 06/14/2024 06/14/2023, 01/12/2021 Zoster Vaccines (1 of 2) 2024 COVID-19 Vaccine ( season) 2025 07/20/2023, 01/18/2021, 12/22/2020 Influenza Vaccine (#1) 2025 Diabetes: Hemoglobin A1C 04/23/2025 04 025, 06/14/2023, 01/12/2021, Additional history exists SDOH Screening 10/22/2025 10/22/2024 Tobacco Screening 10/22/2025 10/22/2024 RSV Patients and Patients Aged 60 years or older (1 - 1-dose 75+ series) 2049 Pneumococcal Vaccine: 50+ Years Completed 07/20/2023 HIB [...] patient's age to complete this topic Meningococcal Vaccine Aged Out No hakeem lianet eligible based on patient's age to complete this topic RSV under 20 months Aged Out No longe r eligible based on patient's age to complete this topic Rotavirus Vaccines Aged Out No longer eligible based on patient's age to complete this topic Procedures Procedure Name Priority Date/Time Associated Diagnosis Comments COMPREHENSIVE METABOLIC PANEL Routine 05/06/2025 4:19 PM EDT Morbid obesity (CMS/HCC) (HCC) VITAMIN B12/FOLATE, SERUM PANEL Routine 05/06/2025 4:19 PM EDT Anemia due to vitamin B12 deficiency, unspecified B12 deficiency type CBC WITH AUTO DIFFERENTIAL Routine 05/06/2025 4:19 PM EDT Anemia due to vitamin B12 deficiency, unspecified B12 deficiency type POCT GLYCATED HEMOGLOBIN, TOTAL Routine 10/22/2024 3:23 PM EDT Type 2 diabetes mellitus without complication, without long-term current use of insulin (CMS/HCC) LIPID PANEL WITH REFLEX TO DIRECT LDL Routine 06/14/2023 1:20 PM EST ALBUMIN, RANDOM URINE W/CREATININE Routine 01/12/2021 4:01 PM EDT HM PAP/HPV Routine 06/09/2019 from Last 3 Months or Most Recently Relevant to Health Maintenance Results * Vitamin B12/Folate, Serum Panel (05/06/2025 4:19 PM EDT) Vitamin B12 331 200 - 900 pg/mL [facility] Comment:NORMAL 200-900 PG/ML INDETERMINATE 160-199 PG/ML DEFICIENT < 160 PG/ML Folate 8.6 > or = 4.0 ng/mL [facility] Comment:Reference Values:> o r = 4.0 ng/mL< 4.0 ng/mL suggests folate deficiency Methotrexate, aminopterin and folinic acid(leucovorin) are chemotherapeutic agents whose molecularstructures are similar to folate; therefore, the Architectfolate assay cannot be used for patients using these drugs. Blood Venous blood specimen / Unknown 05/06/2025 4:19 PM EDT 05/06/2025 6:30 PM EDT us Kate Márquez NP LAB BLOOD ORDERABLES Final Resul t [facility] [address] [place] [phone] * (ABNORMAL) CBC auto differential (05/06/2025 4:19 PM EDT) Pathologist [facility] White Blood Count 5.3 4.8 - 10.8 X10*3/uL [facility] Red Blood Count 4.87 4.20 - 5.50 X10*6/uL [facility] Hemoglobin 13.0 12.0 - 16.0 g/dl [facility] Hematocrit 41.4 37.0 - 47.0 % [facility] Mean Corpuscular Volume 85.0 80.0 - 98.0 fL [facility] Mean Corpuscular Hemoglobin 26.7(L) 27.0 - 33.0 pg [facility] Mean Corpuscular HGB Conc 31.4 31.0 - 35.0 g/dl [facility] Red Cell Distribution Width 14.8 11.0 - 16.0 % [facility] Platelet Count 230 160 - 400 X10*3/uL [facility] Mean Platelet Volume 11.5 9.4 - 12.3 fL [facility] Neutrophils Percent Auto 53.4 45 - 73 % [facility] Imm Gran Pct Auto 0.2 0.0 - 0.4 % [facility] Lymphocytes Percent Auto 35.2 20 - 40 % [facility] Monocytes Percent Auto 9.5 2 - 11 % [facility] Eosinophils Percent Auto 1.1 0 - 4 % [facility] Basophils Percent Auto 0.6 0 - 2 % [facility] NRBC Pct Auto 0.0 0.0 - 0.2 /100WBC [facility] Neutrophils Absolute Auto 2.8 2.0 - 8.3 x10*3/uL [facility] Imm Gran Abs Auto 0.01 0.00 - 0.03 X10*3/uL [facility] Lymphocytes Absolute Auto 1.9 1.2 - 4.9 X10*3/uL [facility] Monocytes Absolute Auto 0.5 0.1 - 1.2 X10*3/uL [facility] Eosinophils Absolute Auto 0.1 0.0 - 0.4 X10*3/uL [facility] Basophils Absolute Auto 0.0 0.0 - 0.2 X10*3/uL [facility] NRBC Abs Auto 0.000 0.0 - 0.012 X10*3/uL [facility] Blood Venous blood specimen / Unknown 05/06/2025 4:19 PM EDT 05/06/2025 6:30 PM EDT us Kate Márquez DIRECTOR MOTION [employer]URE LAB BLOOD ORDERABLES Final Resul t [facility] [address], [place] [phone] * (ABNORMAL) Comprehensive Metabolic Panel (05/06/2025 4:19 PM EDT) Sodium 141 135 - 145 mmol/L [facility] Potassium 4.4 3.3 - 5.1 mmol/L [facility] Chloride 105 96 - 108 mmol/L [facility] Carbon Dioxide 23 22 - 29 mmol/L [facility] Anion Gap 17 12 - 20 [facility] Urea Nitrogen (BUN) 8(L) 9 - 16 mg/dL [facility] Creatinine, Serum 0.69 0.5 - 1.4 mg/dL [facility] Estimated Glomerular Filt Rate >60 [facility] Comment:Chronic Kidney Disea se: Estimated GFR < 60 mL/min/[id number] Kidney Disease: Estimated GFR < 15 mL/min/1.73m2 Glucose 174(H) 60 - 115 mg/dL [facility] Calcium 9.0 8.4 - 10.2 mg/dL [facility] Bilirubin, Total 0.3 0.0 - 1.0 mg/dL [facility] Aspartate Amino Transferase 18 5 - 31 U/L [facility] Alanine Aminotransferase 16 0 - 31 U/L [facility] Total Protein 7.3 6.5 - 8.0 g/dL [facility] Albumin Level 4.4 3.5 - 5.0 g/dL [facility] Alkaline Phosphatase 65 39 - 117 U/L [facility] Blood Venous blood specimen / Unknown 05/06/2025 4:19 PM EDT 05/06/2025 6:30 PM EDT us Kate Márquez NP LAB BLOOD ORDERABLES Final Resul t [facility] [address] [place] [phone] * (ABNORMAL) POCT HGB A1C (10/22/2024 3:23 PM EDT) Hemoglobin A1C 6.2(A) 4.0 - 6.0 % QC Media Lot # [id number] Lot# Expiration Date Blood 10/22/2024 3:23 PM EDT us Blanca Candelaria MD POINT OF CARE TEST ENTER /EDIT ORDERABLES Final Result * (ABNORMAL) Lipid Panel with Reflex to Direct LDL (06/14/2023 1:20 PM EST) Triglycerides 95 <150 mg/dL [facility] Comment:Desirable Triglyceri de: less than 150 mg/dLBorderline High Triglyceride 150-199 mg/dLHigh Triglyceride: 200-499 mg/dLVery High Triglyceride: greater than or equal to 5OO mg/dL Cholesterol 247(H) <200 mg/dL [facility] Comment:Desirable Cholestero l: less than 200 mg/dLBorderline High Cholesterol: 200-239 mg/dLHigh Cholesterol: greater than 239 mg/dL LDL Cholesterol Calculated 147(H) <100 mg/dL [facility] Comment:Desirable LDL: less than 100 mg/dLNear Optimal/Above Optimal LDL: 110- 129 mg/dLBorderline High LDL: 130-159 mg/dLHigh LDL: 160-189 mg/dLVery High LDL: greater than or equal to 190 mg/dL HDL Cholesterol 81 >40 mg/dL [facility] Comment:Desirable HDL: great er than 40 mg/dL Note: This HDL assay may give artificially low results in patients with liver disease. 06/14/2023 1:20 PM EST 06/14/2023 3:54 PM EST us Blanca Candelaria MD LAB BLOOD ORDERABLES Fin al Result [facility] [address] [place] [phone] * ALBUMIN, RANDOM URINE W/CREATININE (01/12/2021 4:01 PM EDT) Microalbumin Urine <0.2 See Note: mg/dL [facility] Comment: Reference Range: Reference Range Not established Microalb/Creat Ratio NOTE <30 mcg/mg creat [facility] Comment: NOTE: The urine albumin value is less than 0.2 mg/dL therefore we are unable to calculate excretion and/or creatinine ratio. The ADA defines abnormalities in albumin excretion as follows: Category Result (mcg/mg creatinine) Normal <30 Microalbuminuria 30-299 Clinical albuminuria > OR = 300 The ADA recommends that at least two of three specimens collected within a 3-6 month period be abnormal before considering a patient to be within a diagnostic category. Creatinine, Urine 157 20 - 275 mg/dL [facility] 01/12/2021 4:0 1 PM EDT Blanca Candelaria MD LAB URINE ORDERABLES Fin al Result [facility] [address] * (ABNORMAL) Pap Smear (06/09/2019) Pap Other Negative for intraephithelial lesion or malignancy, Other HPV Not Detected Undetected, Indeterminate, Quantitative, Not Detected Frida Wise RN - 06/09/2019 Pap smear result ASCUS HPV negative see scanned document from [facility] Historical Provider HEALTH MAINTENANCE Final Result from Last 3 Months or Most Recently Relevant to Health Maintenance Insurance [employer] Care Teams Estate Planning Paralegal Relationship Specialty Start Date End Date Blanca Candelaria MD [address] [place] [address] PCP - General Family Medicine 08/01/19
--- OUTSIDE RECORDS SUMMARY | 2025-05-06 21:58 | XMS_ITS | Encounter Summary ---
Author Organization [employer] Address [address] [place] [address] Care Team Providers Care Wood Boat Builder Supervisor Name Role Phone Blanca Candelaria MD Primary Care Provider + Reason for Visit * Reason Onset Date Comments DME 05/26/2024 The patient call ed regarding prescriptions for DME. She wants to know if her prescriptions were sent to a supplier other than [employer]. She received a call last week from another supplier, asking for her personal information, and said that her prescriptions were sent to them. She stated that she did not give them any information, because she was not sure if it was a scam. Could you please verify this? She may be reached at [phone]. Thank you. Encounter Details Date Type Department Care Team ([facility] st Contact Info) Description 05/26/2024 Telephone [facility] [address], [place] [phone] Blanca Candelaria MD [address] [place], [place] [phone] DME (The patient called regarding prescriptions for DME. She wants to know if her prescriptions were sent to a supplier other than [employer]. She received a call last week from another supplier, asking for her personal information, and said that her prescriptions were sent to them. She stated that she did not give them any information, because she was not sure if it was a scam. Could you please verify this? She may be reached at [phone]. Thank you.) Social History Tobacco Use Types Packs/Day Years [...] Description 05/07/2025 12:15 PM EDT Office Visit [facility] [address] [place] [address] Blanca Candelaria MD [address] [place] [address] 05/12/2025 11:00 AM EDT Office Visit [facility] [address] [place] [address] documented as of this encounter Visit Diagnoses Not on filedocumented in this encounter Care Teams Wood Boat Builder Supervisor Relationship Specialty Start Date End Date Blanca Candelaria MD [address] [place] [address] PCP - General Family Medicine 08/01/19 documented as of this encounter
--- OUTSIDE RECORDS SUMMARY | 2025-05-06 21:58 | XMS_ITS | Encounter Summary ---
Author Organization [employer] Address [address] [place] [address] Care Team Providers Care Mail Order Clerk Name Role Phone Blanca Candelaria MD Primary Care Provider + Reason for Visit * Reason Onset Date Comments Durable Medical Equipment 04/01/2025 DME: [employer] Items Encounter Details Date Type Department Care Team (Late st Contact Info) Description 04/01/2025 Telephone [facility] [address], [place] [phone] Blanca Candelaria MD [address] [place] [address] Durable Medical Equipment (DME: Multiple Items) Social History Tobacco Use Types Packs/Day Years [...] encounter Miscellaneous Notes * Telephone Encounter - Kanika Martinez - 05/05/2025 3:44 PM EDT DME order for the remaining items was generated and sent to provider for signature via [employer]. * Telephone Encounter - Blanca Candelaria MD - 05/05/2025 8:12 AM EDT Re DME, yes, please send prescription for remaining items including nutritional supplement * Telephone Encounter - Carl Brown - 04/01/2025 3:44 PM EDT Tc from pt requesting DME order for Pull ups sz x-large Bed liners Pads Boost - vanilla Disposable wash cloths To be sent to [facility] Contact pt at [phone] documented in this encounter Plan of Treatment Upcoming Encounters Date Type Department Care Team ([facility] st Contact Info) Description 05/07/2025 12:15 PM EDT Office Visit [facility] [address] [place] [address] Blanca Candelaria MD [address] [place] [address] 05/12/2025 11:00 AM EDT Office Visit [facility] OPTOMET[facility] [address] [place] [address] documented as of this encounter Visit Diagnoses Not on filedocumented in this encounter Care Teams Mail Order Clerk Relationship Specialty Start Date End Date Blanca Candelaria MD [address] [place] [address] PCP - General Family Medicine 08/01/19 documented as of this encounter
== END 2025-05-06 16:08 | disposition home or self-care (01) ==
LOC: HO.HHCL 16:07
PROVIDERS: Nurse Practitioner Family; PCP Internal Medicine; Visit Provider Internal Medicine
DX: E66.01 Morbid (severe) obesity due to excess calories (principal); D51.9 Vitamin B12 deficiency anemia, unspecified
CPT/HCPCS: 36415; 80053; 82607; 82746; 85025